=== PATIENT | male | born 2000 | race Caucasian/White ===

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

== ENCOUNTER 2022-10-31 20:18 | Emergency (ER) | payer OTHER ==
[2022-10-31] MEDS ORDERED: Tetracaine 0.5% PF 4 ML BOT ONE (20:31)
[2022-10-31] MEDS ORDERED: Fluorescein Opthalmic Strip ONE (20:32)
[2022-10-31] MEDS ORDERED: traMADol HCl 50 MG TAB ONE (21:25)
== END 2022-10-31 21:31 | disposition home or self-care (01) ==
LOC: MADERS 20:18
DX: H16.133 Photokeratitis, bilateral (principal); F17.290 Nicotine dependence, other tobacco product, uncomplicated
CPT/HCPCS: 99283